=== PATIENT | female | born 1940 | race Caucasian/White ===

== ENCOUNTER 2019-09-19 02:31 | Emergency (ER) | payer OTHER, MEDICARE ==
[~2019-09-19] VITALS: Ht 175.3 cm; Wt 67.6 kg
[2019-09-19 02:53] VITALS: Ht 175.3 cm; Wt 67.6 kg
[2019-09-19 07:23] VITALS: BP 238/91
== END 2019-09-19 07:23 | disposition home or self-care (01) ==
LOC: ED 02:31
DX: B01.9 Varicella without complication (principal); G56.00 Carpal tunnel syndrome, unspecified upper limb; Z98.890 Other specified postprocedural states